=== PATIENT | female | born 1935 | race Two or more races ===

== ENCOUNTER 2017-06-29 08:16 | Outpatient (CLI) | payer OTHER ==
[~2017-06-29 08:16] MED LIST: ACIDOPHILUS1 EAC1 PO; BICARSIM FORTE125 MG PO; CEFUROXIME500 MG PO; CIPRO500 MG PO; INTESTINEX1 CA1 PO; LEVSIN/SL0.125 MG SL; LISINOPRIL2.5 MG; METFORMIN HCL500 M2; PEPCID20 MG; PROTONIX20 MG; ZANTAC150 MG PO; ZANTAC300 MG; ZOFRAN4 MG PO
== END 2017-06-29 09:08 | disposition home or self-care (01) ==
LOC: SONOGRAMA 08:16 → MAMO-SONO 09:15
DX: R10.0 Acute abdomen (principal)

== ENCOUNTER 2017-06-29 08:36 | Outpatient (CLI) | payer OTHER | END 2017-06-29 09:11 | disposition home or self-care (01) | LOC: MRI 08:36 | DX: G30.1 Alzheimer's disease with late onset (principal) | CPT/HCPCS: 70551 ==

== ENCOUNTER 2017-09-22 17:44 | Emergency (ER) | payer OTHER ==
[~2017-09-22] VITALS: Ht 157.5 cm; Wt 56.2 kg
== END 2017-09-22 22:22 | disposition home or self-care (01) ==
LOC: ER 17:44
DX: R10.13 Epigastric pain (principal)

== ENCOUNTER 2017-10-24 08:32 | Outpatient (CLI) | payer OTHER | END 2017-10-24 09:04 | disposition home or self-care (01) | LOC: MRI 08:32 | DX: R10.11 Right upper quadrant pain (principal) | CPT/HCPCS: 74181 ==

== ENCOUNTER 2017-11-07 07:51 | Outpatient (CLI) | payer OTHER | END 2017-11-07 08:30 | disposition home or self-care (01) | LOC: NUCLEAR 07:51 | DX: R10.13 Epigastric pain (principal) | CPT/HCPCS: 78227; A9537; J2805 ==